=== PATIENT | male | born 1970 | race Caucasian/White ===

== ENCOUNTER 2023-01-23 13:42 | Emergency (ER) | payer MEDICARE, MEDICAID ==
[~2023-01-23] VITALS: Ht 180.3 cm; Wt 84.0 kg
[2023-01-23 18:25] VITALS: BP 109/70
== END 2023-01-23 18:27 | disposition home or self-care (01) ==
LOC: ER 13:42
DX: K74.60 Unspecified cirrhosis of liver (principal); M25.562 Pain in left knee; F17.210 Nicotine dependence, cigarettes, uncomplicated; Z91.040 Latex allergy status
CPT/HCPCS: 70450; 71250; 72125; 73080; 73562; 74176